=== PATIENT | male | born 1945 | race Caucasian/White ===

== ENCOUNTER → 2021-06-20 | Outpatient (CLI) | payer OTHER | LOC: SJCVC 17:13 | PROVIDERS: ATTEND Internal Medicine Cardiovascular Disease | DX: R94.31 Abnormal electrocardiogram [ECG] [EKG] (principal); I44.7 Left bundle-branch block, unspecified; R07.9 Chest pain, unspecified; I10 Essential (primary) hypertension; E78.00 Pure hypercholesterolemia, unspecified; I25.10 Atherosclerotic heart disease of native coronary artery without angina pectoris; I71.4 Abdominal aortic aneurysm, without rupture; K21.9 Gastro-esophageal reflux disease without esophagitis; G43.909 Migraine, unspecified, not intractable, without status migrainosus; Z88.8 Allergy status to other drugs, medicaments and biological substances; Z88.7 Allergy status to serum and vaccine; Z79.82 Long term (current) use of aspirin; Z79.899 Other long term (current) drug therapy; Z87.891 Personal history of nicotine dependence; Z82.49 Family history of ischemic heart disease and other diseases of the circulatory system ==

== ENCOUNTER → 2021-06-21 | Outpatient (CLI) | payer OTHER | LOC: CAT 13:00 | PROVIDERS: ATTEND Internal Medicine Cardiovascular Disease | DX: Z13.6 Encounter for screening for cardiovascular disorders (principal); I25.10 Atherosclerotic heart disease of native coronary artery without angina pectoris ==

== ENCOUNTER → 2021-06-28 | Outpatient (CLI) | payer OTHER | LOC: SJCVCIMAG | PROVIDERS: ATTEND Internal Medicine Cardiovascular Disease | DX: I44.7 Left bundle-branch block, unspecified (principal); I25.10 Atherosclerotic heart disease of native coronary artery without angina pectoris; R06.00 Dyspnea, unspecified; R07.9 Chest pain, unspecified; I10 Essential (primary) hypertension; R93.1 Abnormal findings on diagnostic imaging of heart and coronary circulation; Z79.82 Long term (current) use of aspirin; Z79.899 Other long term (current) drug therapy ==

== ENCOUNTER → 2021-07-11 | Outpatient (CLI) | payer OTHER ==
[~2021-07-11] VITALS: Ht 172.7 cm; Wt 83.5 kg
[~2021-07-11] MED LIST: ASA81BEC PO; IMITREX 50 MG T50 MG PO; LIPITOR 20 MG T20 M1 PO; LISINOPRIL20 MG PO; MELOXICAM15 MG PO; PLAVIX 75 MG TA75 MG PO; PRILOSEC OTC20 MG PO; VITAMIN D310 MC4 PO
[2021-07-11 08:04] VITALS: BP 168/75
[2021-07-11 08:07] LABS: HEMATOCRIT 40.5 % (42.0-52.0); HEMOGLOBIN 13.2 gm/dL (14.0-18.0); MCHC 32.7 g/dL (28.0-37.0); MCV 82.5 fL (80.0-100.0); RBC 4.9 mil/uL (4.50-6.00); RDW 14.7 % (10.5-14.5); WBC 8.7 thou/uL (4.0-11.0)
[2021-07-11 08:14] LABS: CALCIUM 8.9 mg/dL (8.5-10.1); CREATININE 1.2 mg/dL (0.7-1.3); POTASSIUM 4.1 mmol/L (3.5-5.1)
--- NOTE | 2021-07-13 14:18 | CATHLAB ---
[facility] [place] [address] [place] [address] INVASIVE PROCEDURE REPORT Name: SHOJOLANTAANSELMO LOVE Room #: REG ALBERT Mathews.#: [id number] Admission: 07/11/21 Attend Phys: Riki Najera MD Discharge: Date of : 47 Report #: [id number] THIS REPORT FOR: cc: Sharon Gallardo MD, Yvette L. MD Mancuso, Gerald M. MD [facility] ~ APPROVED REPORT Study performed: 07/11/2021 10:11:16 Patient Details Patient Status: Out-Patient Room #: The patient is a 75 year-old male Event Personnel Paco Rodriguez Grinder Set Up Operator Thread Tool, Nolberto Lord RN RN, Belem Hutchison RTR, MUSA Scrub, Piedad Huang RTR Scrub, Mine Heaton RTR Monitor Procedures Performed Left Heart Cath w/or w/o Coronaries [id number] [facility] Art Access - R femoral artery* 18320 Initial Mod Sed Same Phys/QHP Gr5y [id number] Hemostasis w/ Mynx Procedure Narrative The patient was brought electively to the Cardiac Catheterization Laboratory and was prepped and draped in a sterile manner. A SHEATH BRITE-TIP 6F X 11CM ([id number]) sheath was inserted into the RFA AFTER DILATING WITH 8FR^. Coronary angiography was performed using coronary diagnostic catheters. The right coronary system was accessed and visualized with a JR4 catheter. The left coronary system was accessed and visualized with a JL4 catheter. The left ventricle was accessed and visualized with a PIGTAIL catheter. Left ventricular/Aortic Valve gradient assessed via catheter pullback. Left ventriculogram was performed in 30 degree projection. Closure device was deployed with a Fr MYNX CONTROL 6F/7F L#[id number]. The patient tolerated the procedure well and there were no complications associated with the procedure. There was no hematoma. This was a combo case with Dr Najera. Dr Najera stented the left SFA and during his part of the case asked for 3mg of versed and 125mcg of fentanyl to be given. He used a total of 142ml of Visipaque. His fluoro time was 20.53mins [place] [address].93 and 1146 mGy of fluoro. Intraoperative Conscious Sedation [address] [address] INVASIVE PROCEDURE REPORT Name: SHOJOLANTA Room #: REG [facility]#: [id number] Admission: 07/11/21 Attend Phys: Riki Najera, Discharge: Date of : 47 Report #: [id number] Sedation start time: 8:36 Case end Time: 11:22 Fentanyl 150 mcg Versed 4.0 mg Fluoro Time: 21.87 minutes Dose: DAP 15542.40 cGycm2 1438 mGy Contrast Type and Amount: Visipaque 222 ml Hemodynamics The aortic pressure is 126/57 mmHg with a mean of 80 mmHg. The left ventricular pressure is 162/10 mmHg with a mean of mmHg. The left ventricular end diastolic pressure is 20 mmHg. Pullback from the left ventricle to the aorta revealed no gradient across the aortic valve. PCI Technique Lesion Percutaneous coronary intervention was performed on the Superficial Femoral. Conclusion #1 Normal ventricular size mild global hypokinesis EF 45% range. #2 left main mildly disease giving rise to LAD a ramus branch and circumflex. #3 the LAD is mildly calcified proximally and mild to moderate diffuse irregularities in a relatively small vessel that wraps the apex. No indication for intervention. #4 ramus intermedius branch is moderate in size with mild disease #5 nondominant circumflex mild irregularities. No occlusive disease. #6 a dominant right coronary with moderate disease in the mid vessel becomes an attenuated distal vessel and small PDA but no intervention indicated Recommendations and plan: Continue aggressive risk factor modification. 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 <ELECTRONICALLY SIGNED> By: Paco Rodriguez MD, FACC 07/13/21 141 17 17 Paco Rodriguez MD, FACC /INF
== END | disposition home or self-care (01) ==
LOC: CATH 06:46
PROVIDERS: ATTEND Nuclear Medicine Nuclear Cardiology
DX: R07.9 Chest pain, unspecified (principal); I25.10 Atherosclerotic heart disease of native coronary artery without angina pectoris; I70.212 Atherosclerosis of native arteries of extremities with intermittent claudication, left leg; I72.3 Aneurysm of iliac artery; M79.605 Pain in left leg; I70.1 Atherosclerosis of renal artery; I10 Essential (primary) hypertension; E78.5 Hyperlipidemia, unspecified; K21.9 Gastro-esophageal reflux disease without esophagitis; Z98.890 Other specified postprocedural states; Z79.899 Other long term (current) drug therapy; Z87.891 Personal history of nicotine dependence; Z82.49 Family history of ischemic heart disease and other diseases of the circulatory system; Z79.82 Long term (current) use of aspirin

== ENCOUNTER → 2021-11-09 | Outpatient (CLI) | payer OTHER ==
[~2021-11-09] MED LIST changes: +NAPROXEN500 MG PO
== END ==
LOC: SJCVCIMAG 08:05
PROVIDERS: ATTEND Nuclear Medicine Nuclear Cardiology
DX: I65.23 Occlusion and stenosis of bilateral carotid arteries (principal); I70.201 Unspecified atherosclerosis of native arteries of extremities, right leg; I72.3 Aneurysm of iliac artery; I77.811 Abdominal aortic ectasia; I77.9 Disorder of arteries and arterioles, unspecified; I25.10 Atherosclerotic heart disease of native coronary artery without angina pectoris; I10 Essential (primary) hypertension; E78.00 Pure hypercholesterolemia, unspecified; K21.9 Gastro-esophageal reflux disease without esophagitis; Z87.891 Personal history of nicotine dependence; Z72.89 Other problems related to lifestyle; Z88.7 Allergy status to serum and vaccine; Z79.82 Long term (current) use of aspirin; Z79.899 Other long term (current) drug therapy; Z82.49 Family history of ischemic heart disease and other diseases of the circulatory system

== ENCOUNTER → 2021-11-22 | Outpatient (CLI) | payer OTHER ==
[~2021-11-22] VITALS: Ht 172.7 cm; Wt 82.1 kg
[2021-11-22 07:39] LABS: HEMOGLOBIN 12.8 gm/dL (14.0-18.0); MCH 26.2 pg (26.0-34.0); MCHC 31.9 g/dL (28.0-37.0); MCV 82.1 fL (80.0-100.0); RBC 4.87 mil/uL (4.50-6.00); RDW 14.8 % (10.5-14.5); WBC 8.2 thou/uL (4.0-11.0)
[2021-11-22 07:45] VITALS: BP 154/67
[2021-11-22 07:50] LABS: CALCIUM 8.8 mg/dL (8.5-10.1)
== END | disposition home or self-care (01) ==
LOC: CATH 06:35
PROVIDERS: ATTEND Nuclear Medicine Nuclear Cardiology
DX: I70.212 Atherosclerosis of native arteries of extremities with intermittent claudication, left leg (principal); T82.856A Stenosis of peripheral vascular stent, initial encounter; M79.604 Pain in right leg; I70.1 Atherosclerosis of renal artery; I25.10 Atherosclerotic heart disease of native coronary artery without angina pectoris; I10 Essential (primary) hypertension; E78.00 Pure hypercholesterolemia, unspecified; K21.9 Gastro-esophageal reflux disease without esophagitis; Z98.890 Other specified postprocedural states; Z79.899 Other long term (current) drug therapy; Z82.49 Family history of ischemic heart disease and other diseases of the circulatory system; Z87.891 Personal history of nicotine dependence; Z79.82 Long term (current) use of aspirin; Y83.8 Other surgical procedures as the cause of abnormal reaction of the patient, or of later complication, without mention of misadventure at the time of the procedure

== ENCOUNTER → 2022-01-03 | Outpatient (CLI) | payer BC | LOC: SJCVCIMAG 08:17 | PROVIDERS: ATTEND Nuclear Medicine Nuclear Cardiology | DX: I73.9 Peripheral vascular disease, unspecified (principal) ==